=== PATIENT | male | born 1965 | race Caucasian/White ===

== ENCOUNTER 2017-11-28 20:09 | Emergency (ER) | payer OTHER ==
--- NOTE | 2017-11-28 20:39 | Emergency Department Record ---
History of Present Illness - General Chief complaint: Head Injury Stated complaint: HIT HEAD ON FIREPLACE MANTEL Time Seen by Provider: 11/28/17 20:33 Source: Patient Mode of Arrival: Ambulatory Limitations: No limitations - History of Present Illness Initial comments: 52 yo male presents to ED for evaluation of an injury to the head and face that occurred last night. Patient reports that he stood up striking his nose on a fireplace mantel last night, denies LOC. Patient denies headache or pain symptoms to the nose or head, but reports bilateral infra-orbital ecchymosis bilaterally. Patient denies the use of anticoagulation medications, and denies health problems at his baseline. MD Complaint: Head injury Onset/Timin -: Hour(s) Mechanism of Injury: Mechanical fall Location: Face Loss of Consciousness: No Previous Trauma to this Area: No Place: Home Radiation: None Consistency: Constant Provoking factors: None known Other Injuries: None Associated Symptoms: Denies other symptoms - Related Data Home Medications Medication Instructions Recorded Confirmed Last Taken No Home Med [NO HOME MEDS] 11/28/17 11/28/17 Unknown Allergies/Adverse reactions: Allergies Allergy/AdvReac Type Severity Reaction Status Date / Time Sulfa (Sulfonamide Allergy PT UNSURE Verified 11/28/17 20:20 Antibiotics) OF REACTION Travel Screening - Travel/Exposure Within Last 30 Days Have you traveled within the last 30 days?: No - Travel Symptoms Symptom Screening: None Review of Systems Constitutional: Denies: Chills, Fever, Malaise, Night sweats Eyes: Denies: Eye discharge, Eye pain, Photophobia ENT: Denies: Congestion, Ear pain, Epistaxis Respiratory: Denies: Cough, Dyspnea Cardiovascular: Denies: Chest pain, Dyspnea on exertion Endocrine: Denies: Fatigue, Heat or cold intolerance Gastrointestinal: Denies: Abdominal pain, Nausea, Vomiting Genitourinary: Denies: Incontinence, Retention Musculoskeletal: Denies: Arthralgia, Back pain, Gout, Joint swelling Skin: Reports: Bruising. Denies: Change in color Neurological: Denies: Abnormal gait, Confusion, Headache, Seizure Psychiatric: Denies: Anxiety Hematological/Lymphatic: Denies: Anemia, Blood Clots, Easy bleeding, Easy bruising Past Medical History - SOCIAL HISTORY Smoking Status: Never smoker - RESPIRATORY Hx Respiratory Disorders: No - CARDIOVASCULAR Hx Cardio Disorders: No - NEURO Hx Neuro Disorders: No - GI Hx GI Disorders: No - Hx Genitourinary Disorders: No - ENDOCRINE Hx Endocrine Disorders: No - MUSCULOSKELETAL Hx Musculoskeletal Disorders: No - PSYCH Hx Psych Problems: No - HEMATOLOGY/ONCOLOGY Hx Hematology/Oncology Disorders: Yes Hx Cancer: Yes (Melanoma) Hx Chemotherapy: Yes Hx Radiation Therapy: No Family Medical History Any Significant Family History?: Yes Hx Cancer: Mother Hx HTN: Mother Physical Exam - General General Appearance: Alert, Oriented x3, Cooperative Limitations: No limitations - Head Head exam: Normocephalic Head exam detail: Martinez's sign, Other (STS and ecchymosis to the nose and infra -orbital regions bilaterally). negative: Abrasion, Contusion, General tenderness, Hematoma, Laceration - Eye Eye exam: Periorbital swelling, Periorbital tenderness. negative: Conjunctival injection, Scleral icterus - ENT Ear exam: negative: Auricular hematoma, Auricular trauma Nasal Exam: negative: Active bleeding, Discharge, Dried blood, Foreign body Mouth exam: negative: Drooling, Laceration, Muffled voice, Tongue elevation - Neck Neck exam: Normal inspection. negative: Meningismus, Tenderness - Respiratory Respiratory exam: Normal lung sounds bilaterally. negative: Rales, Respiratory distress, Rhonchi, Stridor - Cardiovascular Cardiovascular Exam: Regular rate, Normal rhythm, Normal heart sounds - GI/Abdominal GI/Abdominal exam: Soft. negative: Rebound, Rigid, Tenderness - Rectal Rectal exam: Deferred - exam: Deferred - Extremities Extremities exam: Normal inspection. negative: Calf tenderness, Pedal edema, Tenderness - Back Back exam: Denies: CVA tenderness (R), CVA tenderness (L) - Neurological Neurological exam: Alert, Normal gait, Oriented X3 - Psychiatric Psychiatric exam: Normal affect, Normal mood - Skin Skin exam: Other (Ecchymosis to the nose/infra-orbital region) Course Vital Signs 11/28/17 20:19 Temperature 98.5 F Pulse Rate [ 105 H Pulse Ox Probe] Respiratory 18 Rate Blood Pressure 127/89 [Left Arm] Pulse Ox 98 - Reevaluation(s) Reevaluation #1: 11/28/17 21:20 CT Brain: Atrophy, small vessel ischemic change CT Maxillo-facial bones: No fracture Patient was updated on all results, appears stable for discharge at this time. Disposition Disposition: Discharge Clinical Impression: Head injury Qualifiers: Encounter type: initial encounter Qualified Code(s): S09.90XA - Unspecified injury of head, initial encounter Disposition: Home, Self-Care Condition: (2) Stable Instructions: Head Injury (ED) Additional Instructions: Return to ED if your symptoms worsen or if you have any concerns. Follow-up with your family doctor in 3-5 days as directed. Forms: Patient Portal Access Time of Disposition: 21:21 Quality - Quality Measures Quality Measures: N/A, Blunt Head Trauma (>2yr) - [place] Coma Scale Melissa Coma Scale: Melissa Coma Scale Eye Response: (4) Open spontaneously Motor Response: (6) Obeys commands Verbal Response: (5) Oriented Melissa Total: 15 - Blunt Head Trauma - Adult Quality Measure: Measure #415: Utilization of CT for Minor Blunt Head Trauma ICD10 Codes Entered: Yes Was CT ordered: Yes Does Patient Have Any of the Following: No Exclusions Patient Presented Within 24 Hours of Injury: Yes Melissa Score: [address] for Minor Blunt Head Trauma: < CT Done, Appropriate Indication > [G9529] Additional Inclusion Criteria: Within 24hrs (AND) GCS of 15 (AND) CT ordered. [ G9530] Indications For CT: Physical Signs of a Basilar Skull Fracture - Blood Pressure Screening Does Patient Have Any of the Following: No Blood Pressure Classification: Pre-Hypertensive BP Reading Systolic Measurement: 127 Diastolic Measurement: 89 Screening for High Blood Pressure: < Pre-Hypertensive BP, F/U Documented > [ G8950] Pre-Hypertensive Follow-up Interventions: Referral to alternative/primary care provider.
--- NOTE | 2017-11-28 22:06 | CT SCAN REPORT ---
EXAM: CT SCAN HEAD WO CONTRAST HISTORY: HEAD INJURY. TECHNIQUE: CT brain without contrast. COMPARISON: None. FINDINGS: The globes are intact. Paranasal sinuses and mastoid air cells are unremarkable. No displaced or depressed skull fracture. There is no intra or extraaxial hemorrhage. CT limited for evaluation of acute infarct. There is no CT evidence for large or territorial acute infarct. There is no mass or midline shift. Mild diffuse atrophy with minor small vessel ischemic change. IMPRESSION: MILD ATROPHY AND SMALL VESSEL ISCHEMIC CHANGE. JOB NUMBER: [id number] [facility]
--- NOTE | 2017-11-28 22:09 | CT SCAN REPORT ---
EXAM: CT SCAN MAXILLOFACIAL WO CONTRAST HISTORY: INJURY. TECHNIQUE: Axial CT images of the facial bones with coronal and sagittal reconstructions. COMPARISON: None. FINDINGS: The globes are intact. The paranasal sinuses are well aerated. Negative for facial bone fracture. No air fluid levels. Surrounding soft tissues are unremarkable. IMPRESSION: NEGATIVE EXAM. JOB NUMBER: [id number] [facility]
== END 2017-11-28 21:44 | disposition home or self-care (01) ==
LOC: ER 20:09
DX: S00.33XA Contusion of nose, initial encounter (principal); S09.90XA Unspecified injury of head, initial encounter; W01.198A Fall on same level from slipping, tripping and stumbling with subsequent striking against other object, initial encounter; Y92.009 Unspecified place in unspecified non-institutional (private) residence as the place of occurrence of the external cause
CPT/HCPCS: 70450; 70486; 99283; 99284